=== PATIENT | female | born 1985 | race Native Hawaiian/Other Pacific Islander ===

== ENCOUNTER 2016-09-02 02:00 | Emergency (ER) | payer MEDICARE ==
[2016-09-02 02:07] VITALS: BMI 25.0
[2016-09-02 02:12] VITALS: RESP 18
[2016-09-02] MEDS: Albuterol-Ipratrop 3 mg / 0.5 (3 ml) UD IH SCH ×2 (03:09→03:41)
--- NOTE | 2016-09-02 03:15 | ED PDOC ---
Arrival/HPI - General Chief Complaint: Shortness Of Breath Time Seen by Provider: 09/02/16 02:34 Historian: Patient - History of Present Illness Narrative History of Present Illness (Text): 09/02/16 03:05 Tennille Araujo is a 31 year old female, with a history of asthma and food allergies, presents to the emergency department complaining of chest pain associated with shortness of breath and wheezing which began earlier today. Reports that she took her breathing treatments at home for minimal relief. Patient states that shortness of breath is worsened while lying down. She thought symptoms could be due to an allergic reaction and took Benadryl earlier tonight. Denies any fever, chills, headache, difficulty swallowing, throat swelling, nausea, vomiting, diarrhea, or any other complaints at this time. Time/Duration: 1-3 hours Symptom Onset: Gradual Symptom Course: Unchanged Severity Level: Mild Activities at Onset: Light Past Medical History - Provider Review Nursing Documentation Reviewed: Yes - Infectious Disease Hx of Infectious Diseases: None - Tetanus Immunization Tetanus Immunization: Unknown - Cardiac Hx Cardiac Disorders: No - Pulmonary Hx Respiratory Disorders: Yes Hx Asthma: Yes - Neurological Hx Neurological Disorder: No - HEENT Hx HEENT Disorder: No - Renal Hx Renal Disorder: No - Endocrine/Metabolic Hx Endocrine Disorders: No - Hematological/Oncological Hx Blood Disorders: No - Integumentary Hx Dermatological Disorder: Yes Hx Eczema: Yes - Musculoskeletal/Rheumatological Hx Musculoskeletal Disorders: No - Gastrointestinal Hx Gastrointestinal Disorders: No - Genitourinary/Gynecological Hx Genitourinary Disorders: No - Psychiatric Hx Psychophysiologic Disorder: Yes (Anorexia/Bulimia) Hx Substance Use: No Other/Comment: ocd - Past Surgical History Past Surgical History: No Previous - Anesthesia Hx Anesthesia: No - Suicidal Assessment Feels Threatened In Home Enviroment: No Family/Social History - Physician Review Nursing Documentation Reviewed: Yes Family/Social History: No Known Family HX Smoking Status: Heavy Smoker > 10 Cigarettes Daily Hx Alcohol Use: No Hx Substance Use: No Hx Substance Use Treatment: No Allergies/Home Meds Allergies/Adverse Reactions: Allergies latex Allergy (Verified 08/17/15 16:13) SWELLING Penicillins Allergy (Verified 08/17/15 16:13) RASH Home Medications: Home Meds Medication Instructions Recorded Confirmed Acyclovir [Zovirax] 400 mg PO DAILY 08/17/15 08/17/15 FLUoxetine [Prozac] 30 mg PO DAILY 08/17/15 08/17/15 Review of Systems - Physician Review All systems were reviewed & negative as marked: Yes - Review of Systems Constitutional: Normal. absent: Fatigue Respiratory: SOB. absent: Cough Cardiovascular: Chest Pain Gastrointestinal: absent: Abdominal Pain, Diarrhea, Nausea, Vomiting Neurological: Normal. absent: Headache, Dizziness Psychiatric: Normal Physical Exam Vital Signs Reviewed: Yes Vital Signs Temp Pulse Resp BP Pulse Ox 09/02/16 06:29 97.6 F 84 18 126/78 98 09/02/16 06:00 18 98 09/02/16 03:04 18 97 09/02/16 02:11 98.0 F 94 H 18 130/84 97 Temperature: Afebrile Blood Pressure: Normal Pulse: Regular Respiratory Rate: Normal Appearance: Positive for: Well-Appearing, Non-Toxic, Comfortable Pain Distress: None Mental Status: Positive for: Alert and Oriented X 3 - Systems Exam Head: Present: Atraumatic, Normocephalic Pupils: Present: PERRL Extroacular Muscles: Present: EOMI Conjunctiva: Present: Normal Respiratory/Chest: Present: Wheezes (bilateral wheezing ). No: Respiratory Distress, Accessory Muscle Use Cardiovascular: Present: Regular Rate and Rhythm, Normal S1, S2. No: Murmurs Abdomen: Present: Normal Bowel Sounds. No: Tenderness, Distention, Peritoneal Signs Lower Extremity: Present: Normal Inspection. No: Edema Neurological: Present: GCS=15, CN II-XII Intact, Speech Normal Skin: Present: Warm, Dry, Normal Color. No: Rashes Psychiatric: Present: Alert, Oriented x 3, Normal Insight, Normal Concentration Medical Decision Making ED Course and Treatment: 09/02/16 03:18 Impression: A 31 year old female who presents to the emergency department complaining of chest pain associated with shortness of breath since earlier today. Plan: -- EKG -- Duoneb -- Solumedrol -- Reassess and disposition Progress Notes: 09/02/16 03:18 EKG reviewed by me: NSR @ 70 bpm. [place]. 09/02/16 06:09 Reevaluation: On reevaluation, patient states that breathing has improved markedly and is in no acute distress. I have discussed the results and plan with the patient, who expresses understanding. Patient given the opportunity to ask question, all questions were answered and there is agreement with the plan to discharge the patient. Patient is stable for discharge. Patient was instructed to follow up with physician/clinic in 1-2 days or return if symptoms persist/worsen or new concerning symptoms arise. - Lab Interpretations I have reviewed the lab results: Yes - EKG Interpretation Interpreted by ED Physician: Yes Type: 12 lead EKG - Medication Orders Current Medication Orders: Discontinued Medications Albuterol/Ipratropium (Duoneb 3 Mg/0.5 Mg (3 Ml) Ud) 3 ml IH Q15M SHARLENE Stop: 09/02/16 03:16 Last Admin: 09/02/16 03:41 Dose: 3 ML Methylprednisolone (Solu-Medrol) 125 mg IVP ONCE ONE Stop: 09/02/16 02:43 Last Admin: 09/02/16 03:09 Dose: 125 MG IVP Administration Document 09/02/16 03:09 AZALIA (Rec: 09/02/16 03:09 AZAL[id number]) Charges for Administration # of IVP Administrations 1 - Scribe Statement The provider has reviewed the documentation as recorded by the Sara Wilson Provider Attestation: All medical record entries made by the Sara were at my direction and personally dictated by me. I have reviewed the chart and agree that the record accurately reflects my personal performance of the history, physical exam, medical decision making, and the department course for this patient. I have also personally directed, reviewed, and agree with the discharge instructions and disposition. Disposition/Present on Arrival - Present on Arrival Any Indicators Present on Arrival: No History of DVT/PE: No History of Uncontrolled Diabetes: No Urinary Catheter: No History of Decub. Ulcer: No History Surgical Site Infection Following: None - Disposition Have Diagnosis and Disposition been Completed?: Yes Diagnosis: Asthma Disposition: HOME/ ROUTINE Disposition Time: 06:00 Condition: GOOD Discharge Instructions (ExitCare): Asthma (ED) Prescriptions: Clotrimazole/Betamethasone [Lotrisone] 15 gm EXT BID #1 tube predniSONE [predniSONE Tab] 20 mg PO TID #15 tab
[2016-09-02 06:30] VITALS: BP 126/78; PULSE 84; TEMP 97.6; O2SAT 98
--- NOTE | 2016-09-02 18:32 | CARD ---
APPROVED REPORT EKG Measurement Heart [id number] <Conclusion> Normal sinus rhythm Rightward axis Borderline ECG
== END 2016-09-02 06:32 | disposition home or self-care (01) ==
LOC: ED 02:00
DX: J45.909 Unspecified asthma, uncomplicated (principal)
CPT/HCPCS: 93005; 96374; 99284; J2930

== ENCOUNTER 2017-11-23 19:08 | Emergency (ER) | payer MEDICARE ==
--- NOTE | 2017-11-23 19:44 | ED PDOC ---
Arrival/HPI - General Chief Complaint: Chest Pain Time Seen by Provider: 11/23/17 19:11 Historian: Patient - History of Present Illness Narrative History of Present Illness (Text): 11/23/17 19:30 32 year old female, with past medical history of asthma, presents to the Emergency department complaining of chest pain 30 minutes prior to arrival. Patient informs often visiting therapy sessions for an emotional problem she declines to disclose. Patient was in therapy session today when chest discomfort began shortly after leading to anxiety and prompting her to visit the Emergency department. Patient informs associated shortness of breath but denies similar symptoms in the past. Additionally, patient informs rash in her groin for which she requests medical evaluation. Patient denies any fever, chills, nausea, vomiting, diarrhea, abdominal pain, trauma or any other complaints. Patient admits to smoking one pack of cigarettes a day but denies drinking alcohol or any substance use. Time/Duration: Prior to Arrival Symptom Onset: Sudden Symptom Course: Improving Quality: Aching Activities at Onset: Light Context: Other (Therapy session) Past Medical History - Provider Review Nursing Documentation Reviewed: Yes - Infectious Disease Hx of Infectious Diseases: None - Tetanus Immunization Tetanus Immunization: Unknown - Cardiac Hx Cardiac Disorders: No - Pulmonary Hx Respiratory Disorders: Yes Hx Asthma: Yes - Neurological Hx Neurological Disorder: No - HEENT Hx HEENT Disorder: No - Renal Hx Renal Disorder: No - Endocrine/Metabolic Hx Endocrine Disorders: No - Hematological/Oncological Hx Blood Disorders: No - Integumentary Hx Dermatological Disorder: Yes Hx Eczema: Yes - Musculoskeletal/Rheumatological Hx Musculoskeletal Disorders: No - Gastrointestinal Hx Gastrointestinal Disorders: No - Genitourinary/Gynecological Hx Genitourinary Disorders: No - Psychiatric Hx Psychophysiologic Disorder: Yes (Anorexia/Bulimia) Hx Substance Use: No Other/Comment: ocd - Past Surgical History Past Surgical History: No Previous - Anesthesia Hx Anesthesia: No - Suicidal Assessment Feels Threatened In Home Enviroment: No Family/Social History - Physician Review Nursing Documentation Reviewed: Yes Family/Social History: No Known Family HX Smoking Status: Heavy Smoker > 10 Cigarettes Daily Hx Alcohol Use: No Hx Substance Use: No Hx Substance Use Treatment: No Allergies/Home Meds Allergies/Adverse Reactions: Allergies latex Allergy (Verified 08/17/15 16:13) SWELLING Penicillins Allergy (Verified 08/17/15 16:13) RASH shellfish derived Allergy (Verified 11/23/17 20:30) ANAPHYLAXIS Home Medications: Home Meds Medication Instructions Recorded Confirmed Acyclovir [Zovirax] 400 mg PO DAILY 08/17/15 08/17/15 FLUoxetine [Prozac] 30 mg PO DAILY 08/17/15 08/17/15 Review of Systems - Physician Review All systems were reviewed & negative as marked: Yes - Review of Systems Constitutional: Normal. absent: Fevers Eyes: Normal ENT: Normal Respiratory: SOB Cardiovascular: Chest Pain Gastrointestinal: Normal. absent: Abdominal Pain, Diarrhea, Nausea, Vomiting Genitourinary Female: Normal Musculoskeletal: Normal Skin: Rash Neurological: Normal Endocrine: Normal Hemo/Lymphatic: Normal Psychiatric: Normal Physical Exam Vital Signs Reviewed: Yes Vital Signs Temp Pulse Resp Pulse Ox 11/23/17 19:20 99.4 F 74 18 100 Temperature: Afebrile Blood Pressure: Normal Pulse: Regular Respiratory Rate: Normal Appearance: Positive for: Well-Appearing, Non-Toxic, Comfortable Pain Distress: None Mental Status: Positive for: Alert and Oriented X 3 - Systems Exam Head: Present: Atraumatic, Normocephalic Pupils: Present: PERRL Extroacular Muscles: Present: EOMI Conjunctiva: Present: Normal Mouth: Present: Moist Mucous Membranes Neck: Present: Normal Range of Motion Respiratory/Chest: Present: Clear to Auscultation, Good Air Exchange. No: Respiratory Distress, Accessory Muscle Use Cardiovascular: Present: Regular Rate and Rhythm, Normal S1, S2. No: Murmurs Abdomen: No: Tenderness, Distention, Peritoneal Signs Back: Present: Normal Inspection Upper Extremity: Present: Normal Inspection. No: Cyanosis, Edema Lower Extremity: Present: Normal Inspection. No: Edema Neurological: Present: GCS=15, CN II-XII Intact, Speech Normal Skin: Present: Warm, Dry, Normal Color. No: Rashes Psychiatric: Present: Alert, Oriented x 3, Normal Insight, Normal Concentration Medical Decision Making ED Course and Treatment: 11/23/17 19:46 Impression: 32 year old female presents to the Emergency department for chest pain and shortness of breath. Plan: -- Labs -- Chest X-ray -- Reassess and disposition Prior Visits: Notes and results from previous visits were reviewed. Progress Notes: 11/23/17 19:46 EKG: Ordered, reviewed, and independently interpreted the EKG. Rate : 70 BPM Rhythm : NSR Interpretation : No ST-segment elevations or depressions, no T-wave inversions, normal intervals. - Lab Interpretations Lab Results: 11/23/17 19:30 11/23/17 19:30 Lab Results 11/23/17 19:30: Sodium 142, Potassium 3.9, Chloride 105, Carbon Dioxide 24, Anion Gap 17, BUN 12, Creatinine 0.8, Est GFR ( Amer) > 60, Est GFR (Non- Af Amer) > 60, Random Glucose 118 H, Calcium 9.6, Total Bilirubin 0.3, AST 22, ALT 18, Alkaline Phosphatase 61, Lactate Dehydrogenase 423, Total Creatine Kinase 61, Troponin I < 0.01, Total Protein 7.7, Albumin 4.5, Globulin 3.2, Albumin/Globulin Ratio 1.4 11/23/17 19:30: PT 9.8, INR 0.86 L, D-Dimer, Quantitative 298 H 11/23/17 19:30: WBC 12.5 H, RBC 4.58, Hgb 14.7, Hct 41.3, MCV 90.2, MCH 32.1, MCHC 35.6, RDW 11.8, Plt Count 269, MPV 10.1, Gran % 75.3 H, Lymph % (Auto) 17.1 L, Jewell % (Auto) 4.7, Eos % (Auto) 2.7, Baso % (Auto) 0.2, Gran # 9.44 H, Lymph # (Auto) 2.1, Jewell # (Auto) 0.6, Eos # (Auto) 0.3, Baso # (Auto) 0.03 - RAD Interpretation Narrative RAD Interpretations (Text): 11/23/2017 23:42 NM Lung Perfusion and Ventilation Scan FINDINGS: Ventilation: Ventilation exam is heterogeneous and nondiagnostic due to central deposition of radiotracer. Swallow radiotracer is noted within the stomach. Perfusion: Unremarkable. No perfusion defect identified to suggest pulmonary embolism. IMPRESSION: No perfusion defect identified to suggest pulmonary embolism. Radiology Orders: 11/23/17 19:22 CHEST PORTABLE [RAD] Stat 11/23/17 20:30 LUNG PERF & VENT SCAN [NM] Stat - Scribe Statement The provider has reviewed the documentation as recorded by the Scribannette Benton. All medical record entries made by the Scribe were at my direction and personally dictated by me. I have reviewed the chart and agree that the record accurately reflects my personal performance of the history, physical exam, medical decision making, and the department course for this patient. I have also personally directed, reviewed, and agree with the discharge instructions and disposition. Disposition/Present on Arrival - Present on Arrival Any Indicators Present on Arrival: No History of DVT/PE: No History of Uncontrolled Diabetes: No Urinary Catheter: No History of Decub. Ulcer: No History Surgical Site Infection Following: None - Disposition Have Diagnosis and Disposition been Completed?: Yes Diagnosis: Panic attack, Intertriginous candidiasis Disposition: HOME/ ROUTINE Disposition Time: 00:03 Patient Plan: Discharge Condition: GOOD Discharge Instructions (ExitCare): Anxiety, Adult (DC), Yeast Infection (DC), Panic Disorder (DC) Prescriptions: Butenafine HCl [Lotrimin Ultra] 30 gm TP BID #30 cream..g. Forms: [facility] ([place]), WORK NOTE, SCHOOL NOTE
[2017-11-23 19:45] LABS: BASO # 0.03 K/mm3 (0.0-2.0); BASO % 0.2 % (0.0-3.0); EOS # 0.3 (0.0-0.7); EOS % 2.7 % (1.5-5.0); GRAN # 9.44 (1.4-6.5); GRAN % 75.3 % (50.0-68.0); HEMOGLOBIN 14.7 g/dL (12.0-16.0); LYMPH # 2.1 (1.2-3.4); LYMPH % 17.1 % (22.0-35.0); MEAN CELL VOLUME 90.2 fl (80.0-105.0); MEAN CORPUSCULAR HEMOGLOBIN 32.1 pg (25.0-35.0); MEAN CORPUSCULAR HGB CONC 35.6 g/dl (31.0-37.0); MEAN PLATELET VOLUME 10.1 fl (7.0-11.0); MONO # 0.6 (0.1-0.6); MONO % 4.7 % (1.0-6.0); RBC 4.58 10^6/uL (3.5-6.1); RED CELL DISTRIBUTION WIDTH 11.8 % (11.5-14.5); WHITE BLOOD COUNT 12.5 10^3/ul (4.5-11.0)
[2017-11-23 19:46] VITALS: RESP 18; TEMP 99.4; BMI 24.7
[2017-11-23 19:51] LABS: INR 0.86 (0.93-1.08); PROTHROMBIN TIME 9.8 SECONDS (9.4-12.5)
[2017-11-23 19:55] LABS: ALB/GLOB RATIO 1.4 (1.1-1.8); ALBUMIN 4.5 g/dL (3.0-4.8); ALT/SGPT 18 U/L (7-56); AST/SGOT 22 U/L (14-36); BLOOD UREA NITROGEN 12 mg/dL (7-21); CALCIUM 9.6 mg/dL (8.4-10.5); GFR NON-AFRICAN AMERICAN > 60
[2017-11-23 20:08] LABS: TROPONIN I < 0.01 ng/mL
[2017-11-23] MEDS ORDERED: Iohexol 350 MG/100 ML VIAL ONE (20:27)
[2017-11-24 00:34] VITALS: BP 135/74; PULSE 72; O2SAT 99
--- NOTE | 2017-11-24 08:54 | RAD ---
HISTORY: Dyspnea/Chest Pain COMPARISON: No prior. FINDINGS: LUNGS: The lungs are well inflated and. PLEURA: No significant pleural effusion identified, no pneumothorax apparent. CARDIOVASCULAR: Normal. OSSEOUS STRUCTURES: No significant abnormalities. VISUALIZED UPPER ABDOMEN: Normal. OTHER FINDINGS: None. IMPRESSION: No active pulmonary disease.
--- NOTE | 2017-11-24 15:45 | NM ---
COMPARISON: 11/23/2017 TECHNIQUE: 33.0 mCi technetium 99-m DTPA aerosol. 4.0 mCI technetium 99-m MAA administered intravenously. FINDINGS: VENTILATION COMPONENT: Heterogeneous ventilation. Retention of radionuclide in the tracheobronchial tree and ingestion of radionuclide in the stomach, incidental findings PERFUSION COMPONENT: Heterogeneous distribution of radionuclide. No geographic, segmental, lobar abnormalities apparent on the present examination. IMPRESSION: Low probability ventilation perfusion scan for pulmonary embolism.
--- NOTE | 2017-11-24 22:59 | CARD ---
APPROVED REPORT EKG Measurement Heart [id number] <Conclusion> Normal sinus rhythm with sinus arrhythmia Rightward axis Borderline ECG
== END 2017-11-24 00:25 | disposition home or self-care (01) ==
LOC: ED 19:08
DX: F41.0 Panic disorder [episodic paroxysmal anxiety] (principal); B37.2 Candidiasis of skin and nail; F17.210 Nicotine dependence, cigarettes, uncomplicated

== ENCOUNTER 2018-02-14 15:25 | Emergency (ER) | payer MEDICARE ==
[2018-02-14 15:25] VITALS: BMI 25.0
[2018-02-14 15:36] VITALS: RESP 18
--- NOTE | 2018-02-14 15:37 | ED PDOC ---
Arrival/HPI - General Time Seen by Provider: 02/14/18 15:33 Historian: Patient - History of Present Illness Narrative History of Present Illness (Text): 02/14/18 15:39 32 y/o female, no significant pmh, allergic to penicillin and latex, c/o itching rash on the whole body and throat feeling itching (disagreed with the nurse triage) x 1 hour after eating cheetos. Pt. stated that she had cheetos before but this time is different, been having itching throat and whole body itching, no fever ro chills, no difficulty talking or speaking, no difficulty drinking or swallowing, no night sweat, no coughing, no palpitation or night sweat, no rash, no other medical or psychological complaints. Past Medical History - Provider Review Nursing Documentation Reviewed: Yes - Infectious Disease Hx of Infectious Diseases: None - Tetanus Immunization Tetanus Immunization: Unknown - Cardiac Hx Cardiac Disorders: No - Pulmonary Hx Respiratory Disorders: Yes Hx Asthma: Yes - Neurological Hx Neurological Disorder: No - HEENT Hx HEENT Disorder: No - Renal Hx Renal Disorder: No - Endocrine/Metabolic Hx Endocrine Disorders: No - Hematological/Oncological Hx Blood Disorders: No - Integumentary Hx Dermatological Disorder: Yes Hx Eczema: Yes - Musculoskeletal/Rheumatological Hx Musculoskeletal Disorders: No - Gastrointestinal Hx Gastrointestinal Disorders: No - Genitourinary/Gynecological Hx Genitourinary Disorders: No - Psychiatric Hx Psychophysiologic Disorder: Yes (Anorexia/Bulimia) Hx Substance Use: No Other/Comment: ocd - Past Surgical History Past Surgical History: No Previous - Anesthesia Hx Anesthesia: No - Suicidal Assessment Feels Threatened In Home Enviroment: No Family/Social History - Physician Review Nursing Documentation Reviewed: Yes Family/Social History: Unknown Family HX Smoking Status: Heavy Smoker > 10 Cigarettes Daily Hx Alcohol Use: No Hx Substance Use: No Hx Substance Use Treatment: No Allergies/Home Meds Allergies/Adverse Reactions: Allergies latex Allergy (Verified 08/17/15 16:13) SWELLING Penicillins Allergy (Verified 08/17/15 16:13) RASH shellfish derived Allergy (Verified 11/23/17 20:30) ANAPHYLAXIS Home Medications: Home Meds Medication Instructions Recorded Confirmed Acyclovir [Zovirax] 400 mg PO DAILY 08/17/15 08/17/15 FLUoxetine [Prozac] 30 mg PO DAILY 08/17/15 08/17/15 Review of Systems - Review of Systems Constitutional: absent: Fatigue, Fevers Eyes: absent: Vision Changes ENT: Other (+throat itching). absent: Hearing Changes Respiratory: absent: SOB, Cough Cardiovascular: absent: Chest Pain Gastrointestinal: absent: Abdominal Pain, Nausea, Vomiting Skin: Rash, Pruritis. absent: Skin Lesions, Laceration, Abscess, Ulcer, Cellulitis Neurological: absent: Headache, Dizziness Psychiatric: absent: Anxiety, Depression Physical Exam Vital Signs Reviewed: Yes Vital Signs Temp Pulse Resp BP Pulse Ox 02/14/18 17:37 91 H 18 125/60 99 02/14/18 15:35 98.6 F 90 18 137/76 98 Temperature: Afebrile Blood Pressure: Normal Pulse: Regular Respiratory Rate: Normal Appearance: Positive for: Well-Appearing, Non-Toxic, Comfortable Pain Distress: None Mental Status: Positive for: Alert and Oriented X 3 - Systems Exam Head: Present: Atraumatic, Normocephalic Pupils: Present: PERRL Extroacular Muscles: Present: EOMI Conjunctiva: Present: Normal Mouth: Present: Moist Mucous Membranes, Normal Lips, Normal Tounge, Normal Teeth , Other (airway patent. ). No: Dry, Drooling, Trismus Pharnyx: No: ERYTHEMA, EXUDATE, TONSILS ENLARGED, Uvular Deviation, Muffled/ Hoarse Voice, Soft Palate/Uvular Edema Nose (External): Present: Atraumatic. No: Abrasion, Contusion, Laceration Nose (Internal): Present: Normal Inspection, No Active Bleeding. No: Rhinorrhea , Septal Hematoma, Epistaxis Neck: Present: Normal Range of Motion, Trachea Midline. No: Meningeal Signs, MIDLINE TENDERNESS, Paraspinal Tenderness, Lymphadenopathy Respiratory/Chest: Present: Clear to Auscultation, Good Air Exchange. No: Respiratory Distress, Accessory Muscle Use, Wheezes, Decreased Breath Sounds, Rales, Retracting, Rhonchi, Tachypneic, Tender to Palpation Cardiovascular: Present: Regular Rate and Rhythm, Normal S1, S2. No: Murmurs Abdomen: No: Tenderness, Distention, Peritoneal Signs Back: Present: Normal Inspection. No: CVA Tenderness, Midline Tenderness Upper Extremity: Present: Normal Inspection. No: Cyanosis, Edema Lower Extremity: Present: Normal Inspection. No: Edema Neurological: Present: GCS=15, CN II-XII Intact, Speech Normal Skin: Present: Warm, Dry, Rashes (visible generalize minimal resolving hives noted on the bilateal upper and lower extremities including around the neck, no bullseye or target signs, no cellulitis or ulcers. ), Normal Color Psychiatric: Present: Alert, Oriented x 3, Normal Insight, Normal Concentration Medical Decision Making ED Course and Treatment: 02/14/18 15:50 -Pt. stated that she gave her self epipen and dario prior to arrival, IVF and pepcid ordered, pending urien test. 02/14/18 16:40 -Urine hcg is negative -IV solumedrol 125mg ordered 02/14/18 17:48 -All rash and itching resolved, feeling completely better, observed in the ER over 2.5 hours and total of 3.5 hours from the time of start, request to be discharged home. -Pt. request epi pen as she always has one for anaphylatic and understands the adverse reaction and side effect of this medication, will prescribe her one since she has severe allergic reaction. -Discharge home with benadryl, pepcid, prednisone, epipen(use as indicated), avoid contact with the same allergies and food, follow up with your own pmd and retail special event associate within 2 days, return to the ER for any new or worsening signs or symptoms. - Medication Orders Current Medication Orders: Discontinued Medications Famotidine (Pepcid) 20 mg IVP STAT STA Stop: 02/14/18 15:41 Last Admin: 02/14/18 16:38 Dose: 20 mg IVP Administration Document 02/14/18 16:38 [facility] (Rec: 02/14/18 16:38 [facility] [id number]) Charges for Administration # of IVP Administrations 1 Sodium Chloride (Sodium Chloride 0.9%) 1,000 mls @ 999 mls/hr IV .Q1H1M STA Stop: 02/14/18 16:39 Last Admin: 02/14/18 16:37 Dose: 999 mls/hr eMAR Start Stop Document 02/14/18 16:37 [facility] (Rec: 02/14/18 16:37 [facility] [id number]) Intravenous Solution Start Date 02/14/18 Start Time 15:40 End Date 02/14/18 End time 16:40 Total Infusion Time 60 Methylprednisolone (Solu-Medrol) 125 mg IVP STAT STA Stop: 02/14/18 16:40 Last Admin: 02/14/18 17:01 Dose: 125 mg IVP Administration Document 02/14/18 17:01 [facility] (Rec: 02/14/18 17:01 [facility] [id number]) Charges for Administration # of IVP Administrations 1 - PA / [employer] / Resident Statement MD/DO has reviewed & agrees with the documentation as recorded. Disposition/Present on Arrival - Present on Arrival Any Indicators Present on Arrival: No History of DVT/PE: No History of Uncontrolled Diabetes: No Urinary Catheter: No History of Decub. Ulcer: No History Surgical Site Infection Following: None - Disposition Have Diagnosis and Disposition been Completed?: Yes Diagnosis: Hives, Allergic reaction Disposition: HOME/ ROUTINE Disposition Time: 17:49 Patient Plan: Discharge Patient Problems: Current Active Problems Problem Status Onset Hives Acute Allergic reaction Acute Condition: IMPROVED Additional Instructions: -Discharge home with benadryl, pepcid, prednisone, epipen(use as indicated), avoid contact with the same allergies and food, follow up with your own pmd and retail special event associate within 2 days, return to the ER for any new or worsening signs or symptoms. Prescriptions: DiphenhydrAMINE [Benadryl] 50 mg PO QID PRN #20 cap PRN Reason: Other Epinephrine HCl [Epipen Auto-Injector] 0.3 mg MR ONCE PRN #1 unit PRN Reason: Other Famotidine [Pepcid] 20 mg PO BID #8 tab Prednisone 50 mg PO DAILY #4 tablet Referrals: [facility] [place] [Outside] - Follow up with primary Tammi Kelly MD [Staff Provider] - Follow up with primary Forms: WORK NOTE
[2018-02-14] MEDS ORDERED: Sodium Chloride 0.9% 1,000 ML IV STA (15:39)
[2018-02-14 17:38] VITALS: BP 125/60; PULSE 91; O2SAT 99
[2018-02-14 17:49] VITALS: TEMP 98.4
== END 2018-02-14 17:50 | disposition home or self-care (01) ==
LOC: ED 15:25
DX: L50.0 Allergic urticaria (principal)
CPT/HCPCS: 96361; 96374; 96375; 99283; J2930; J7030